=== PATIENT | female | born 1945 | race Caucasian/White ===

== ENCOUNTER 2024-12-13 15:46 | Outpatient (CLI) | payer MEDICARE | END 2024-12-13 15:47 | disposition home or self-care (01) | LOC: BURRAD 15:46 | PROVIDERS: ATTEND Family Medicine | DX: M47.26 Other spondylosis with radiculopathy, lumbar region (principal); M51.16 Intervertebral disc disorders with radiculopathy, lumbar region; M48.061 Spinal stenosis, lumbar region without neurogenic claudication; M51.379 Other intervertebral disc degeneration, lumbosacral region without mention of lumbar back pain or lower extremity pain; M48.07 Spinal stenosis, lumbosacral region | CPT/HCPCS: 72110 ==